=== PATIENT | male | born 1975 | race Caucasian/White ===

== ENCOUNTER 2017-01-16 18:37 | Emergency (ER) | payer BC ==
[~2017-01-16] VITALS: Ht 175.3 cm; Wt 102.2 kg
[~2017-01-16 18:37] MED LIST: BISM262O23 PO; CLON-429; GUAI-637 PO; OMEP20CA9 PO; PAXIL
[2017-01-16 20:05] VITALS: Ht 175.3 cm; Wt 102.2 kg
[2017-01-16] MEDS ORDERED: DOXY100T20 PO (21:02)
[2017-01-16] MEDS ORDERED: CETI10CA PO (21:02)
[2017-01-16] MEDS ORDERED: KENC1 TOP (21:02)
--- NOTE | 2017-01-16 21:15 | ERD ---
ER Documentation Chief Complaint Date/Time DATE: 01/16/17 TIME: 21:14 Chief Complaint RASH TO RT SIDE FOREHEAD AND HEAD, C/O HEADACHE DENIES FEVER HPI This 42-year-old male complains of a rash which is painful and itchy on the right side of the scalp as well as the left posterior scalp. Splint for last few days. He says it might started after new shampoo. Denies fevers, vomiting , shortness breath or chest pain. ROS All systems reviewed and are negative except as per history of present illness. Medications Home Meds Active Scripts Cetirizine Hcl* (Zyrtec*) 10 Mg Capsule, 10 MG PO DAILY, #30 TAB.CHEW Prov:BECKI VALENTINO MD 01/16/17 Triamcinolone Acetonide (Triamcinolone Acetonide) 0.1% - 15 Gm Cream.gm., 1 APPLIC TOP BID for 7 Days, #1 TUB Prov:BECKI VALENTINO MD 01/16/17 Doxycycline Hyclate* (Doxycycline Hyclate*) 100 Mg Tablet.dr, 100 MG PO BID for 10 Days, #20 TAB Prov:BECKI VALENTINO MD 01/16/17 Guaifenesin* (Robitussin*) 100 Mg/5 Ml Syrup, 200 MG PO Q4H Y for COUGH for 5 Days, ML Prov:SANDRA KANG NP 07/10/16 Omeprazole* (Prilosec*) 20 Mg Capsule.dr, 20 MG PO BID, #30 CAP 0 Refills Prov:LUCÍA RIDDLE PA-C 01/22/16 Bismuth Subsalicylate* (Pepto-Bismol*) 262 Mg/15 Ml Oral.susp, 30 ML PO Q6H Y for PAIN, #240 ML 0 Refills Prov:LUCÍA RIDDLE PA-C 01/22/16 Reported Medications Clonazepam* (Klonopin*) 0.5 Mg Tab 03/29/12 [Paxil] No Conflict Check 03/29/12 Allergies Allergies: Coded Allergies: No Known Allergy (Unverified , 01/16/17) PMhx/Soc Medical and Surgical Hx: pt denies Surgical Hx History of Surgery: No Anesthesia Reaction: No Hx Neurological Disorder: No Hx Respiratory Disorders: No Hx Cardiac Disorders: Yes (HTN) Hx Psychiatric Problems: No Hx Miscellaneous Medical Probl: Yes (DM) Hx Alcohol Use: Yes (social) Hx Substance Use: No Hx Tobacco Use: Yes (social) Smoking Status: Current every day smoker Physical Exam Vitals Vital Signs Date Time Temp Pulse Resp B/P Pulse Ox O2 Delivery O2 Flow Rate FiO2 01/16/17 20:05 97.6 74 18 152/96 94 Physical Exam Const: [] Alert, [id number]. Head: Atraumatic Eyes: Normal Conjunctiva ENT: Normal External Ears, Nose and Mouth. Neck: Full range of motion..~ No meningismus. Resp: Clear to auscultation bilaterally Cardio: Regular rate and rhythm, no murmurs Abd: Soft, non tender, non distended. Normal bowel sounds Skin: No petechiae or purpura. There is some papules and excoriations on the scalp erythematous papules. There is no warmth, induration or streaking. Back: No midline or flank tenderness Ext: No cyanosis, or edema Neur: Awake and alert Psych: Normal Mood and Affect Procedures/MDM Patient has signs and symptoms of a rash on the scalp with some small papules pulled it may be a folliculitis or some type of contact dermatitis. There is no evidence of significant cellulitis or sepsis or life-threatening rashes. We treated with doxycycline, triamcinolone and Zyrtec. Patient was instructed to abstain from his new shampoo. Patient should return for fevers, worsening redness, new or worsening symptoms with primary care doctor. Departure Diagnosis: Primary Impression: Rash Condition: Stable Patient Instructions: Dermatitis, Non-Specific, Folliculitis Additional Instructions: Recheck for new or worsening symptoms or with primary care doctor. BECKI VALENTINO MD Jan 16, 2017 21:15
[2017-01-16 21:37] VITALS: BP 150/89; PULSE 72; RESP 16
== END 2017-01-16 21:38 | disposition home or self-care (01) ==
LOC: FTE 18:37
DX: R21 Rash and other nonspecific skin eruption (principal); E11.9 Type 2 diabetes mellitus without complications; I10 Essential (primary) hypertension; F17.210 Nicotine dependence, cigarettes, uncomplicated
CPT/HCPCS: 99284

== ENCOUNTER 2017-04-15 15:54 | Emergency (ER) | payer BC ==
[~2017-04-15] VITALS: Ht 177.8 cm; Wt 100.0 kg
[~2017-04-15 15:54] MED LIST changes: +CETI10CA PO; +DOXY100T20 PO; +KENC1 TOP
[2017-04-15 15:56] VITALS: Ht 177.8 cm; Wt 100.0 kg
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
[2017-04-15] MEDS ORDERED: SILV20CR13 TOP (16:24)
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
[2017-04-15] MEDS ORDERED: NEOM1PAC TP (18:16)
== END 2017-04-15 18:52 | disposition home or self-care (01) ==
LOC: E/R 15:54 → FTE 18:52
DX: Z48.01 Encounter for change or removal of surgical wound dressing (principal); F17.210 Nicotine dependence, cigarettes, uncomplicated; I10 Essential (primary) hypertension; E11.9 Type 2 diabetes mellitus without complications
CPT/HCPCS: 73140

== ENCOUNTER 2017-04-22 14:28 | Emergency (ER) | payer BC ==
[~2017-04-22] VITALS: Wt 89.0 kg
[~2017-04-22 14:28] MED LIST changes: +NEOM1PAC TP
[2017-04-22] MEDS ORDERED: CARB15DR48 LEFT EAR (15:12)
[2017-04-22] MEDS ORDERED: OFLO5DRO7 LEFT EAR (15:12)
--- NOTE | 2017-04-22 20:41 | ERD ---
ER Documentation Chief Complaint Date/Time DATE: 04/22/17 TIME: 15:53 Chief Complaint LEFT EAR PAIN X 2 DAYS HPI 42-year-old male patient with a past medical history of diabetes, hypertension, hyperlipidemia presents to the ED complaining of left ear pain that started 2 days ago. Reports that he has some slightly decreased hearing. Denies any chest pain, shortness of breath, headache, weakness, numbness or tingling. Reports that he uses Q-tips. Denies any recent swimming. ROS All systems reviewed and are negative except as per history of present illness. Medications Home Meds Active Scripts Carbamide Peroxide* (Debrox*) 6.5% - 15 Ml Drops, 10 DROP LEFT EAR BID, #1 BOTTLE Prov:GIANFRANCO PASCAL PA-C 04/22/17 Neomycin Arias/Bacitrac Zn/Poly (Triple Antibiotic Ointment) 1 Each Oint.pack, 1 EACH TP TID for 7 Days Prov:CANDIDO MAGAÑA 04/15/17 Cetirizine Hcl* (Zyrtec*) 10 Mg Capsule, 10 MG PO DAILY, #30 TAB.CHEW Prov:BECKI VALENTINO MD 01/16/17 Triamcinolone Acetonide (Triamcinolone Acetonide) 0.1% - 15 Gm Cream.gm., 1 APPLIC TOP BID for 7 Days, #1 TUB Prov:BECKI VALENTINO MD 01/16/17 Doxycycline Hyclate* (Doxycycline Hyclate*) 100 Mg Tablet., 100 MG PO BID for 10 Days, #20 TAB Prov:BECKI VALENTINO MD 01/16/17 Guaifenesin* (Robitussin*) 100 Mg/5 Ml Syrup, 200 MG PO Q4H Y for COUGH for 5 Days, ML Prov:SANDRA KANG NP 07/10/16 Omeprazole* (Prilosec*) 20 Mg Capsule., 20 MG PO BID, #30 CAP 0 Refills Prov:LUCÍA RIDDLE PA-C 01/22/16 Bismuth Subsalicylate* (Pepto-Bismol*) 262 Mg/15 Ml Oral.susp, 30 ML PO Q6H Y for PAIN, #240 ML 0 Refills Prov:LUCÍA RIDDLE PA-C 01/22/16 Reported Medications Clonazepam* (Klonopin*) 0.5 Mg Tab 03/29/12 [Paxil] No Conflict Check 03/29/12 Allergies Allergies: Coded Allergies: No Known Allergy (Unverified , 01/16/17) PMhx/Soc History of Surgery: No Anesthesia Reaction: No Hx Neurological Disorder: No Hx Respiratory Disorders: No Hx Cardiac Disorders: Yes (HTN) Hx Psychiatric Problems: No Hx Miscellaneous Medical Probl: Yes (DM, HYPERLIPIDEMIA) Hx Alcohol Use: Yes (social) Hx Substance Use: No Hx Tobacco Use: Yes (social) Smoking Status: Never smoker Physical Exam Vitals Vital Signs Date Time Temp Pulse Resp B/P Pulse Ox O2 Delivery O2 Flow Rate FiO2 04/22/17 14:30 98.0 93 18 142/89 99 Physical Exam Const: [id number], well-nourished. In no acute distress. Head: Atraumatic, normocephalic Eyes: Normal Conjunctiva without injection. No purulent discharge. PERRL. EOMI ENT: Normal external ear. Right ear canal without erythema. Right tympanic membrane pearly abdi without effusion or bulging. Left ear canal with brown cerumen noted. Nasal canal clear with normal turbinates. Moist oropharynx without tonsillar exudates. Non-erythematous pharynx. Uvula midline. No drooling. No trismus. Neck: Full range of motion. No meningismus. No cervical lymphadenopathy. Resp: Clear to auscultation bilaterally. No wheezing, rhonchi, rales, or crackles. No accessory muscle use. No retractions. Cardio: Regular rate and rhythm. No murmurs, rubs or gallops. Abd: Soft, non tender, non distended. Normal bowel sounds. No palpable masses. No rebound tenderness. No guarding. Skin: No petechiae or rashes Back: No midline tenderness. No CVA tenderness. Ext: No cyanosis, or edema. Neur: Awake and alert. Psych: Normal Mood and Affect Procedures/MDM 42-year-old male patient with a past medical history of diabetes, hypertension, hypercholesterolemia presents the ED complaining of left ear pain that started 2 days ago. Patient is afebrile nontoxic appearing. Patient has normal vital signs. At this time patient gave consent to do a cerumen disimpaction. Hydrogen peroxide and normal saline was used to remove the cerumen. White cotton disimpacted from left ear canal could likely be the tip of the Q-tip. Patient reports that his hearing is better. Patient does not have tenderness to palpation of tragus or mastoid. Low suspicion for otitis media, otitis externa, ruptured tympanic membrane or mastoiditis. Patient's physical exam include lungs which were clear to auscultation and a normal pulse oximetry. There is a low suspicion for pneumonia, epiglottitis, croup, viral/strep pharyngitis, sinusitis, peritonsillar abscess, retropharyngeal abscess, meningitis, sepsis, acute abdomen or other emergent conditions. Discharge medications: Debrox Follow up with primary care physician in 1-2 days. Instructed patient to return to the ED sooner for any worsening symptoms. Patient's questions were answered. Patient understood and agreed with discharge plan. Patient discharged stable. Departure Diagnosis: Primary Impression: Left ear pain Condition: Stable Patient Instructions: Cerumen Impaction, Home Care Referrals: [facility] YOU HAVE RECEIVED A MEDICAL SCREENING EXAM AND THE RESULTS INDICATE THAT YOU DO NOT HAVE A CONDITION THAT REQUIRES URGENT TREATMENT IN THE EMERGENCY DEPARTMENT. FURTHER EVALUATION AND TREATMENT OF YOUR CONDITION CAN WAIT UNTIL YOU ARE SEEN IN YOUR DOCTORS OFFICE WITHIN THE NEXT 1-2 DAYS. IT IS YOUR RESPONSIBILITY TO MAKE AN APPOINTMENT FOR FOLOW-UP CARE. IF YOU HAVE A PRIMARY DOCTOR --you should call your primary doctor and schedule an appointment IF YOU DO NOT HAVE A PRIMARY DOCTOR YOU CAN CALL OUR PHYSICIAN REFERRAL HOTLINE AT IF YOU CAN NOT AFFORD TO SEE A PHYSICIAN YOU CAN CHOSE FROM THE FOLLOWING [facility] [address] [facility] [address] [facility] [address] [facility] [address] [facility] [address] [facility]. [facility]. [address] [facility] [facility] YOU HAVE RECEIVED A MEDICAL SCREENING EXAM AND THE RESULTS INDICATE THAT YOU DO NOT HAVE A CONDITION THAT REQUIRES URGENT TREATMENT IN THE EMERGENCY DEPARTMENT. FURTHER EVALUATION AND TREATMENT OF YOUR CONDITION CAN WAIT UNTIL YOU ARE SEEN IN YOUR DOCTORS OFFICE WITHIN THE NEXT 1-2 DAYS. IT IS YOUR RESPONSIBILITY TO MAKE AN APPOINTMENT FOR FOLOW-UP CARE. IF YOU HAVE A PRIMARY DOCTOR --you should call your primary doctor and schedule and appointment IF YOU DO NOT HAVE A PRIMARY DOCTOR YOU CAN CALL OUR PHYSICIAN REFERRAL HOTLINE AT . IF YOU CAN NOT AFFORD TO SEE A PHYSICIAN YOU CAN CHOSE FROM THE FOLLOWING [facility] INSTITUTIONS: [facility] [address] [place] [address] [facility] [address] [place] [address] [facility] [address] [place] [address] [facility]ENT [facility]/SPECIALTIES Additional Instructions: Call your primary care doctor TOMORROW for an appointment during the next 2-3 days.See the doctor sooner or return here if your condition worsens before your appointment time. GIANFRANCO PASCAL PA-C Apr 22, 2017 15:55
== END 2017-04-22 15:46 | disposition home or self-care (01) ==
LOC: FTE 14:28
DX: H92.02 Otalgia, left ear (principal); I10 Essential (primary) hypertension; E11.9 Type 2 diabetes mellitus without complications; H61.22 Impacted cerumen, left ear; Z87.891 Personal history of nicotine dependence

== ENCOUNTER 2017-06-28 18:17 | Emergency (ER) | payer BC ==
[~2017-06-28] VITALS: Wt 96.4 kg
[~2017-06-28 18:17] MED LIST changes: +CARB15DR50 LEFT EAR; -KENC1 TOP; +TRIA15CR55 TOP
[2017-06-28] MEDS ORDERED: ONDANSETRON 4 MG INJ IV STA (18:46)
[2017-06-28] MEDS ORDERED: morphine 10 MG INJ IV ONE (19:00)
[2017-06-28] MEDS ORDERED: SOD CHLORIDE 0.9% 1,000 ML IV ONE (19:00)
[2017-06-28 19:06] LABS: BASOPHILS % 0.3 % (0.0-2.0); EOSINOPHILS # 0.1 10^3/ul (0.0-0.5); HEMATOCRIT 41.4 % (42.0-52.0); HEMOGLOBIN 14.4 g/dl (14.0-18.0); LYMPHOCYTES % 28.6 % (15.0-51.0); MEAN CORPUSCULAR HEMOGLOBIN 31.7 pg (29.0-33.0); MEAN CORPUSCULAR HGB CONC 34.8 g/dl (32.0-37.0); MEAN CORPUSCULAR VOLUME 91.2 fl (82.0-101.0); MEAN PLATELET VOLUME 9.1 fl (7.4-10.4); MONOCYTE # 0.5 10^3/ul (0.3-0.9); MONOCYTES % 7.5 % (0.0-11.0); NEUTROPHILS % 61.5 % (39.0-77.0); PLATELET COUNT 283 10^3/UL (140-415); RED BLOOD COUNT 4.54 10^6/ul (4.70-6.10)
[2017-06-28 19:23] LABS: INR 0.93; PROTIME 12.5 Sec (12.2-14.2)
[2017-06-28 19:24] LABS: PARTIAL THROMBOPLASTIN TIME 25.1 Sec (25.0-35.0)
--- NOTE | 2017-06-28 19:24 | RADRPT ---
PROCEDURE: CT Brain without contrast. CLINICAL INDICATION: headache TECHNIQUE: A CT of the brain was performed on a [employer] 64-slice CT scanner utilizing axial imaging from the skull base through the vertex without IV contrast. Multiplanar reformatted images were made. Images were reviewed on a PACS workstation. The CTDIvol is 45 mGy and the DLP is 720 mG ycm. COMPARISON: None FINDINGS: There is no intracranial hemorrhage, mass effect, or midline shift. No extra-axial fluid collection is seen. The ventricles and sulci are normal in size and configuration. The density of the brain is normal, and the abdi white matter differentiation appears well-preserved. The visualized paranasal sinuses and osseous structures are grossly unremarkable. IMPRESSION: 1. No evidence of acute intracranial pathology. 2. The brain is normal in appearance. Physician Kush Date Time Electronically viewed and signed by Physician Kush on 06/28/2017 19:23 ML/
[2017-06-28 19:30] LABS: ALBUMIN 4.5 g/dl (3.3-4.9); ALBUMIN/GLOBULIN RATIO 1.55; BILIRUBIN,INDIRECT 0.2 mg/dl (0-1.1); BILIRUBIN,TOTAL 0.2 mg/dl (0.2-1.3); CALCIUM 8.7 mg/dl (8.4-10.2); CREATININE 0.76 mg/dl (0.61-1.24); POTASSIUM 4.1 mmol/L (3.5-5.1)
[2017-06-28 19:34] LABS: TOTAL PROTEIN 7.4 g/dl (6.1-8.1)
[2017-06-28] MEDS ORDERED: IBUP-1542 PO (20:12)
[2017-06-28] MEDS ORDERED: HYDR-906 PO (20:12)
[2017-06-28] MEDS ORDERED: KETOROLAC 30 MG INJ IV STA (20:16)
[2017-06-28 20:28] VITALS: BP 133/87; PULSE 76; RESP 18; TEMP 98.2
--- NOTE | 2017-06-28 21:06 | ERD ---
ER Documentation Chief Complaint Date/Time DATE: 06/28/17 TIME: 21:03 Chief Complaint bump on head HPI This is a 42-year-old male presents here with a headache that started today. Headache is located on the right side of his head and patient states that head ache is throbbing in quality. Headache radiates throughout his entire head. Patient denies any head trauma. He denies any vision loss or vision changes. He denies any nausea or vomiting. He denies any photophobia. Patient took ibuprofen however headache returned after a few hours. She denies any neck pain or neck stiffness ROS 12 point review of systems was done, all negative except per HPI. Medications Home Meds Active Scripts Hydrocodone/Acetaminophen ([place] 5-325 Tablet) 1 Each Tablet, 1 TAB PO Q6H Y for PAIN, #20 TAB Prov:SHERRY ZEE 06/28/17 Ibuprofen* (Motrin*) 600 Mg Tab, 600 MG PO Q6, #30 TAB Prov:SHERRY ZEE 06/28/17 Carbamide Peroxide* (Debrox*) 6.5% - 15 Ml Drops, 10 DROP LEFT EAR BID, #1 BOTTLE Prov:GIANFRANCO PASCAL PA-C 04/22/17 Neomycin Arias/Bacitrac Zn/Poly (Triple Antibiotic Ointment) 1 Each Oint.pack, 1 EACH TP TID for 7 Days Prov:CANDIDO MAGAÑA 04/15/17 Cetirizine Hcl* (Zyrtec*) 10 Mg Capsule, 10 MG PO DAILY, #30 TAB.CHEW Prov:BECKI VALENTINO MD 01/16/17 Triamcinolone Acetonide (Triamcinolone Acetonide) 0.1% - 15 Gm Cream.gm., 1 APPLIC TOP BID for 7 Days, #1 TUB Prov:BECKI VALENTINO MD 01/16/17 Doxycycline Hyclate* (Doxycycline Hyclate*) 100 Mg Tablet.dr, 100 MG PO BID for 10 Days, #20 TAB Prov:BECKI VALENTINO MD 01/16/17 Guaifenesin* (Robitussin*) 100 Mg/5 Ml Syrup, 200 MG PO Q4H Y for COUGH for 5 Days, ML Prov:SANDRA KANG NP 07/10/16 Omeprazole* (Prilosec*) 20 Mg Capsule.dr, 20 MG PO BID, #30 CAP 0 Refills Prov:LUCÍA RIDDLE PA-C 01/22/16 Bismuth Subsalicylate* (Pepto-Bismol*) 262 Mg/15 Ml Oral.susp, 30 ML PO Q6H Y for PAIN, #240 ML 0 Refills Prov:VENKATESHLUCÍA MCFARLANE 01/22/16 Reported Medications Clonazepam* (Klonopin*) 0.5 Mg Tab 03/29/12 [Paxil] No Conflict Check 03/29/12 Allergies Allergies: Coded Allergies: No Known Allergy (Unverified , 06/28/17) PMhx/Soc History of Surgery: No Anesthesia Reaction: No Hx Neurological Disorder: No Hx Respiratory Disorders: No Hx Cardiac Disorders: Yes (HTN) Hx Psychiatric Problems: No Hx Miscellaneous Medical Probl: Yes (DM, HYPERLIPIDEMIA) Hx Alcohol Use: Yes (social) Hx Substance Use: No Hx Tobacco Use: Yes (social) Smoking Status: Current every day smoker Physical Exam Vitals Vital Signs Date Time Temp Pulse Resp B/P Pulse Ox O2 Delivery O2 Flow Rate FiO2 06/28/17 20:28 98.2 76 18 133/87 95 Room Air 06/28/17 18:24 98.0 20 85 140/85 97 Physical Exam GENERAL: The patient is well developed and appropriate for usual state of health , in no apparent distress. HEENT: Atraumatic. Conjunctivae are pink. Pupils equal, round, and reactive to light. Extraocular muscles are grossly intact. Bilateral tympanic membranes are clear with no evidence of erythema, bulging or perforation. No sinus tenderness. NECK: C-spine is soft and supple. There is no cervical lymphadenopathy. CHEST: Clear to auscultation bilaterally. There are no rales, wheezes or rhonchi. HEART: Regular rate and rhythm. No murmurs, clicks, rubs or gallops. EXTREMITIES: Equal pulses bilaterally. There is no peripheral clubbing, cyanosis or edema. No focal swelling or erythema. Full range of motion. Grossly neurovascularly intact. NEURO: Alert and oriented. Cranial nerves II through XII are intact. Motor strength in all 4 extremities with 5/5 strength. Sensation grossly intact. Normal speech and gait. Negative Rhomberg. +2 DTRs. SKIN: There is no apparent rash or petechia. The skin is warm and dry. Result Diagram: 06/28/17189906/28/171899 Results 24 hrs Laboratory Tests Test 06/28/17 19:00 06/28/17 20:18 White Blood Count 7.010^3/ul Red Blood Count 4.5410^6/ul Hemoglobin 14.4g/dl Hematocrit 41.4% Mean Corpuscular Volume 91.2fl Mean Corpuscular Hemoglobin 31.7pg Mean Corpuscular Hemoglobin Concent 34.8g/dl Red Cell Distribution Width 12.0% Platelet Count 68028^3/UL Mean Platelet Volume 9.1fl Neutrophils % 61.5% Lymphocytes % 28.6% Monocytes % 7.5% Eosinophils % 2.0% Basophils % 0.3% Nucleated Red Blood Cells % 0.0/100WBC Neutrophils # (Manual) 410^3/ul Lymphocytes # 2.010^3/ul Monocytes # 0.510^3/ul Eosinophils # 0.110^3/ul Basophils # 0.010^3/ul Nucleated Red Blood Cells # 0.010^3/ul Prothrombin Time 12.5Sec Prothrombin Time Ratio 1.0 INR International Normalized Ratio 0.93 Activated Partial Thromboplast Time 25.1Sec Sodium Level 133mmol/L Potassium Level 4.1mmol/L Chloride Level 99mmol/L Carbon Dioxide Level 21mmol/L Anion Gap 17 Blood Urea Nitrogen 10mg/dl Creatinine 0.76mg/dl Glucose Level 348mg/dl Calcium Level 8.7mg/dl Total Bilirubin 0.2mg/dl Direct Bilirubin 0.00mg/dl Indirect Bilirubin 0.2mg/dl Aspartate Amino Transf (AST/SGOT) 56IU/L Alanine Aminotransferase (ALT/SGPT) 86IU/L Alkaline Phosphatase 85IU/L Total Protein 7.4g/dl Albumin 4.5g/dl Globulin 2.90g/dl Albumin/Globulin Ratio 1.55 Bedside Glucose 247mg/dL Current Medications Medications (Trade) Dose Ordered Sig/Rob Route PRN Reason Start Time Stop Time Status Last Admin Dose Admin Sodium Chloride (NS) 1,000 ml @ 1,000 mls/hr Q1H ONCE IV 06/28/17 19:00 06/28/17 19:59 DC 06/28/17 19:03 Morphine Sulfate (morphine) 6 mg ONCE ONCE IV 06/28/17 19:00 06/28/17 19:01 DC 06/28/17 19:03 Ondansetron HCl (Zofran Inj) 4 mg ONCE STAT IV 06/28/17 18:46 06/28/17 18:49 DC 06/28/17 19:02 Ketorolac Tromethamine (Toradol) 30 mg ONCE STAT IV 06/28/17 20:16 06/28/17 20:17 DC 06/28/17 20:20 [place] [address] Radiology Main Line: [phone] DIAGNOSTIC IMAGING REPORT Patient: RONI PRESLEY : 1975 Age: 42 Sex: M MR #: [id number] DOS: 06/28/17 0000 Ordering MD: SHERRY ZEE. PA-C Location: [facility] Room/Bed: PROCEDURE: CT Brain without contrast. CLINICAL INDICATION: headache TECHNIQUE: A CT of the brain was performed on a GE [employer] 64-slice CT scanner utilizing axial imaging from the skull base through the vertex without IV contrast. Multiplanar reformatted images were made. Images were reviewed on a PACS workstation. The CTDIvol is 45 mGy and the DLP is 720 mGycm. COMPARISON: None FINDINGS: There is no intracranial hemorrhage, mass effect, or midline shift. No extra- axial fluid collection is seen. The ventricles and sulci are normal in size and configuration. The density of the brain is normal, and the abdi white matter differentiation appears well-preserved. The visualized paranasal sinuses and osseous structures are grossly unremarkable. IMPRESSION: 1. No evidence of acute intracranial pathology. 2. The brain is normal in appearance. Physician Kush Date Time Electronically viewed and signed by Physician Kush on 06/28/2017 19 :23 ML/ CC: SHERRY ZEE Procedures/MDM Differential Diagnosis includes but is not limited to; tension headache, migraine headache, cluster headache, sinus headache, nonspecific febrile headache, trigeminal neurologia, subdural hematoma, subarachnoid bleeding, meningitis, encephalitis. Patient is neurologically intact with no focal neurological deficits. This is a 42-year-old male presents ER with a headache, this is likely a migraine headache. For acute intracranial pathology is low. Patient is afebrile and well-appearing I doubt infectious etiology. Patient is to follow-up with his primary care doctor within 1-2 days or return to ER sooner if symptoms worsen. My medical decision making shared with the patient he understands and agrees with plan. Departure Diagnosis: Primary Impression: Headache Condition: Stable Patient Instructions: Self-Care for Headaches Additional Instructions: Llame al doctor MAANA y neema oralia MELANIE PARA DENTRO DE 1-2 STINSON.Dgale a la secretaria que nosotros le instruimos hacer esta melanie.Avise o llame si arias condicin se empeora antes de la melanie. Regresa aqui si peor o no mejor. SHERRY ZEE Jun 28, 2017 21:06
== END 2017-06-28 20:30 | disposition home or self-care (01) ==
LOC: FTE 18:17
DX: R51 Headache (principal); I10 Essential (primary) hypertension; E11.9 Type 2 diabetes mellitus without complications; F17.210 Nicotine dependence, cigarettes, uncomplicated
CPT/HCPCS: 70450; 80053; 82962; 85025; 85610; 85730; 96374; 96375; 99285; J1885; J2270; J2405; J7030

== ENCOUNTER 2017-08-16 18:51 | Emergency (ER) | payer BC ==
[~2017-08-16] VITALS: Ht 170.2 cm; Wt 100.5 kg
[~2017-08-16 18:51] MED LIST changes: +HYDR-906 PO; +IBUP-1542 PO
[2017-08-16 19:29] VITALS: Ht 170.2 cm; Wt 100.5 kg
[2017-08-16] MEDS ORDERED: LISI10TA2 PO (22:31)
[2017-08-16] MEDS ORDERED: ZOC10 PO (22:32)
--- NOTE | 2017-08-16 22:39 | ERD ---
ER Documentation Chief Complaint Date/Time DATE: 08/16/17 TIME: 22:37 Chief Complaint MED REFILL ON SIMVASTATIN AND LISINOPRIL. DENIES KEANE/N/V HPI This is 42-year-old male who presents to the emergency department today for refill of his simvastatin and lisinopril. States he is unsure how much simvastatin he takes as he forgot the bottle at home. States that he has a local clinic but the computer system went down there and they told him they would call them back and they never followed up. Denies any headache, dizziness blurred vision, chest pain or shortness of breath. ROS All systems reviewed and are negative except as per history of present illness. Medications Home Meds Active Scripts Simvastatin (Simvastatin) 10 Mg Tablet, 10 MG PO QHS, #30 TAB Prov:VIC PAL PA-C 08/16/17 Lisinopril* (Lisinopril*) 10 Mg Tablet, 10 MG PO DAILY, #30 TAB Prov:VIC PAL PA-C 08/16/17 Hydrocodone/Acetaminophen ([place] 5-325 Tablet) 1 Each Tablet, 1 TAB PO Q6H Y for PAIN, #20 TAB Prov:SHERRY ZEE 06/28/17 Ibuprofen* (Motrin*) 600 Mg Tab, 600 MG PO Q6, #30 TAB Prov:SHERRY ZEE 06/28/17 Carbamide Peroxide* (Debrox*) 6.5% - 15 Ml Drops, 10 DROP LEFT EAR BID, #1 BOTTLE Prov:GIANFRANCO PASCAL PA-C 04/22/17 Neomycin Arias/Bacitrac Zn/Poly (Triple Antibiotic Ointment) 1 Each Oint.pack, 1 EACH TP TID for 7 Days Prov:CANDIDO MAGAÑA 04/15/17 Cetirizine Hcl* (Zyrtec*) 10 Mg Capsule, 10 MG PO DAILY, #30 TAB.CHEW Prov:BECKI VALENTINO MD 01/16/17 Triamcinolone Acetonide (Triamcinolone Acetonide) 0.1% - 15 Gm Cream.gm., 1 APPLIC TOP BID for 7 Days, #1 TUB Prov:BECKI VALENTINO MD 01/16/17 Doxycycline Hyclate* (Doxycycline Hyclate*) 100 Mg Tablet.dr, 100 MG PO BID for 10 Days, #20 TAB Prov:BECKI VALENTINO MD 01/16/17 Guaifenesin* (Robitussin*) 100 Mg/5 Ml Syrup, 200 MG PO Q4H Y for COUGH for 5 Days, ML Prov:SANDRA KANG NP 07/10/16 Omeprazole* (Prilosec*) 20 Mg Capsule., 20 MG PO BID, #30 CAP 0 Refills Prov:LUCÍA RIDDLE PA-C 01/22/16 Bismuth Subsalicylate* (Pepto-Bismol*) 262 Mg/15 Ml Oral.susp, 30 ML PO Q6H Y for PAIN, #240 ML 0 Refills Prov:LUCÍA RIDDLE PA-C 01/22/16 Reported Medications Clonazepam* (Klonopin*) 0.5 Mg Tab 03/29/12 [Paxil] No Conflict Check 03/29/12 Allergies Allergies: Coded Allergies: No Known Allergy (Unverified , 08/16/17) PMhx/Soc Medical and Surgical Hx: pt denies Surgical Hx History of Surgery: No Anesthesia Reaction: No Hx Neurological Disorder: No Hx Respiratory Disorders: No Hx Cardiac Disorders: Yes (HTN) Hx Psychiatric Problems: No Hx Miscellaneous Medical Probl: Yes (DM, HYPERLIPIDEMIA) Hx Alcohol Use: Yes (social) Hx Substance Use: No Hx Tobacco Use: Yes (social) Smoking Status: Current every day smoker Physical Exam Vitals Vital Signs Date Time Temp Pulse Resp B/P Pulse Ox O2 Delivery O2 Flow Rate FiO2 08/16/17 19:29 98.7 92 20 160/89 98 Physical Exam Const: NAD Head: Atraumatic Eyes: Normal Conjunctiva ENT: Normal External Ears, Nose and Mouth. Neck: Full range of motion..~ No meningismus. Resp: Clear to auscultation bilaterally Cardio: Regular rate and rhythm, no murmurs Abd: Soft, non tender, non distended. Normal bowel sounds Skin: No petechiae or rashes Back: No midline or flank tenderness Ext: No cyanosis, or edema Neur: Awake and alert Psych: Normal Mood and Affect Procedures/MDM This 42-year-old male presents the emergency department today for medication refill on his simvastatin and lisinopril. Patient indicated he had been out approximately 3 weeks. Patient's vital signs are stable. His blood pressure is 160/89. He has no headache dizziness blurred vision chest pain or shortness of breath and I do not feel he requires further workup or imaging at this time. Patient for hypertensive emergency or hypertensive urgency. Patient was given a refill on both of his medications. He was instructed to keep his appointment with his primary care doctor. At this time the patient is stable for discharge and outpatient management. Patient should follow up with their PCP in the next 1-2 days. They may return to the emergency department sooner for any persistent or worsening of symptoms. Patient understood and agreed with the plan. Departure Diagnosis: Primary Impression: Encounter for medication refill Condition: Fair Patient Instructions: Taking Medicine Safely Referrals: your PCP Additional Instructions: Llame al doctor VENTURA y neema oralia MELANIE PARA DENTRO DE 1-2 STINSON.Dgale a la secretaria que nosotros le instruimos hacer esta melanie.Avise o llame si arias condicin se empeora antes de la melanie. Regresa aqui si peor o no mejor. Take medications as prescribed Keep your appoitment with your primary care doctor VIC PAL PA-C Aug 16, 2017 22:39
== END 2017-08-16 23:12 | disposition home or self-care (01) ==
LOC: FTE 18:51
DX: Z76.0 Encounter for issue of repeat prescription (principal); I10 Essential (primary) hypertension; E11.9 Type 2 diabetes mellitus without complications; F17.210 Nicotine dependence, cigarettes, uncomplicated
CPT/HCPCS: 99281

== ENCOUNTER 2017-09-20 18:39 | Emergency (ER) | payer BC ==
[~2017-09-20] VITALS: Ht 175.3 cm; Wt 98.6 kg
[~2017-09-20 18:39] MED LIST changes: +LISI10TA2 PO; +ZOC10 PO
[2017-09-20 18:48] VITALS: Ht 175.3 cm; Wt 98.6 kg
[2017-09-20] MEDS ORDERED: ASPIRIN 81 MG TAB PO STA (20:07)
[2017-09-20 20:16] LABS: BASOPHILS % 0.4 % (0.0-2.0); EOSINOPHILS # 0.1 10^3/ul (0.0-0.5); EOSINOPHILS % 1.2 % (0.0-7.0); LYMPHOCYTES # 2.1 10^3/ul (0.8-2.9); LYMPHOCYTES % 26.5 % (15.0-51.0); MEAN CORPUSCULAR HEMOGLOBIN 32.5 pg (29.0-33.0); MEAN CORPUSCULAR HGB CONC 34.9 g/dl (32.0-37.0); MEAN CORPUSCULAR VOLUME 93.1 fl (82.0-101.0); MEAN PLATELET VOLUME 9.3 fl (7.4-10.4); MONOCYTE # 0.5 10^3/ul (0.3-0.9); MONOCYTES % 6.8 % (0.0-11.0); NEUTROPHILS % 64.8 % (39.0-77.0); PLATELET COUNT 314 10^3/UL (140-415); RED BLOOD COUNT 4.62 10^6/ul (4.70-6.10); RED CELL DISTRIBUTION WIDTH 11.7 % (11.5-14.5); WHITE BLOOD COUNT 7.8 10^3/ul (4.8-10.8)
[2017-09-20 20:23] LABS: ANION GAP 16 (8-16); BLOOD UREA NITROGEN 10 mg/dl (7-20); CALCIUM 9.5 mg/dl (8.4-10.2); CARBON DIOXIDE 26 mmol/L (21-31); CHLORIDE 97 mmol/L (97-110); CREATININE 0.82 mg/dl (0.61-1.24); GLUCOSE 328 mg/dl (70-220); POTASSIUM 3.9 mmol/L (3.5-5.1); SODIUM 135 mmol/L (135-144)
[2017-09-20] MEDS ORDERED: KETOROLAC 30 MG INJ IV STA (20:28)
[2017-09-20] MEDS ORDERED: SOD CHLORIDE 0.9% 1,000 ML IV STA (20:28)
[2017-09-20 20:35] LABS: TROPONIN-I < 0.012 ng/ml (0.00-0.12)
--- NOTE | 2017-09-20 21:17 | RADRPT ---
PROCEDURE: XR Chest. CLINICAL INDICATION: Chest Pain. TECHNIQUE: Single frontal view of the chest was obtained COMPARISON: Chest radiograph dated November 28, 2015. FINDINGS: The heart is within the upper limits of normal in size. There is mild pulmonary vascular congestion. No focal consolidation, pleural effusions, or pneumotho rax is seen. The osseous structures are grossly unremarkable. IMPRESSION: 1. Mild pulmonary vascular congestion. 2. No focal consolidations. RPTAT:AAJJ Physician Hal Date Time Electronically viewed and signed by Physician Hal on 09/20/2017 21:17 QL/
[2017-09-20] MEDS ORDERED: LISI10TA2 PO (22:11)
[2017-09-20] MEDS ORDERED: SIMV5TAB50 PO (22:11)
[2017-09-20] MEDS ORDERED: GLIP5TAB13 PO (22:11)
[2017-09-20] MEDS ORDERED: PARO40TA79 PO (22:11)
[2017-09-20] MEDS ORDERED: MTF1000T PO (22:11)
--- NOTE | 2017-09-20 22:12 | ERD ---
ER Documentation Chief Complaint Chief Complaint Uncontrolled HTN, headache x 2 days. HPI 42-year-old male with a history of hypertension and diabetes presenting for uncontrolled hypertension and poorly controlled diabetes. He states he is supposed be on metformin 1000 mg twice daily, however he ran out of this medication, so he is only taking 500 mg twice daily. He also complains of intermittent chest pains and headaches. He states he has been feeling unwell for quite some time. He has an appointment scheduled with his primary care doctor in 1 month. Is asking for refill for all of his medications. ROS All systems reviewed and are negative except as per history of present illness. Medications Home Meds Active Scripts Paroxetine Hcl* (Paroxetine*) 40 Mg Tablet, 40 MG PO DAILY, #30 TAB Prov:HOLLY ROMERO MD 09/20/17 Simvastatin* (Simvastatin*) 5 Mg Tablet, 10 MG PO QHS, #30 TAB Prov:HOLLY ROMERO MD 09/20/17 Glipizide* (Glipizide*) 5 Mg Tablet, 5 MG PO BID, #60 TAB Prov:HOLLY ROMERO MD 09/20/17 Lisinopril* (Lisinopril*) 10 Mg Tablet, 10 MG PO DAILY, #30 TAB Prov:HOLLY ROMERO MD 09/20/17 Metformin* (Glucophage*) 1,000 Mg Tablet, 1000 MG PO BID, #60 TAB Prov:HOLLY ROMERO MD 09/20/17 Simvastatin (Simvastatin) 10 Mg Tablet, 10 MG PO QHS, #30 TAB Prov:VIC PAL PA-C 08/16/17 Lisinopril* (Lisinopril*) 10 Mg Tablet, 10 MG PO DAILY, #30 TAB Prov:VIC PAL PA-C 08/16/17 Hydrocodone/Acetaminophen ([place] 5-325 Tablet) 1 Each Tablet, 1 TAB PO Q6H Y for PAIN, #20 TAB Prov:SHERRY ZEE 06/28/17 Ibuprofen* (Motrin*) 600 Mg Tab, 600 MG PO Q6, #30 TAB Prov:SHERRY ZEE 06/28/17 Carbamide Peroxide* (Debrox*) 6.5% - 15 Ml Drops, 10 DROP LEFT EAR BID, #1 BOTTLE Prov:GIANFRANCO PASCAL PA-C 04/22/17 Neomycin Arias/Bacitrac Zn/Poly (Triple Antibiotic Ointment) 1 Each Oint.pack, 1 EACH TP TID for 7 Days Prov:CANDIDO MAGAÑA 04/15/17 Cetirizine Hcl* (Zyrtec*) 10 Mg Capsule, 10 MG PO DAILY, #30 TAB.CHEW Prov:BECKI VALENTINO MD 01/16/17 Triamcinolone Acetonide (Triamcinolone Acetonide) 0.1% - 15 Gm Cream.gm., 1 APPLIC TOP BID for 7 Days, #1 TUB Prov:BECKI VALENTINO MD 01/16/17 Doxycycline Hyclate* (Doxycycline Hyclate*) 100 Mg Tablet., 100 MG PO BID for 10 Days, #20 TAB Prov:BECKI VALENTINO MD 01/16/17 Guaifenesin* (Robitussin*) 100 Mg/5 Ml Syrup, 200 MG PO Q4H Y for COUGH for 5 Days, ML Prov:SANDRA KANG NP 07/10/16 Omeprazole* (Prilosec*) 20 Mg Capsule.dr, 20 MG PO BID, #30 CAP 0 Refills Prov:LUCÍA RIDDLE PA-C 01/22/16 Bismuth Subsalicylate* (Pepto-Bismol*) 262 Mg/15 Ml Oral.susp, 30 ML PO Q6H Y for PAIN, #240 ML 0 Refills Prov:LUCÍA RIDDLE PA-C 01/22/16 Reported Medications Clonazepam* (Klonopin*) 0.5 Mg Tab 03/29/12 [Paxil] No Conflict Check 03/29/12 Allergies Allergies: Coded Allergies: No Known Allergy (Unverified , 08/16/17) PMhx/Soc History of Surgery: No Anesthesia Reaction: No Hx Neurological Disorder: No Hx Respiratory Disorders: No Hx Cardiac Disorders: Yes (HTN) Hx Psychiatric Problems: No Hx Miscellaneous Medical Probl: Yes (DM, HYPERLIPIDEMIA) Hx Alcohol Use: Yes (social) Hx Substance Use: No Hx Tobacco Use: Yes (social) Smoking Status: Current some day smoker FmHx Family History: diabetes Physical Exam Vitals Vital Signs Date Time Temp Pulse Resp B/P Pulse Ox O2 Delivery O2 Flow Rate FiO2 09/20/17 22:19 98.7 75 22 141/83 97 Room Air 09/20/17 21:00 76 20 139/72 96 Room Air 09/20/17 20:15 98.5 76 20 150/90 96 Room Air 09/20/17 19:42 84 20 164/93 99 Room Air 09/20/17 18:48 98.0 116 20 202/139 99 Physical Exam Const: Nontoxic, no apparent distress Head: Atraumatic Eyes: Normal Conjunctiva ENT: Normal External Ears, Nose and Mouth. Neck: Full range of motion..~ No meningismus. Resp: Clear to auscultation bilaterally Cardio: Regular rate and rhythm, no murmurs. 2+ distal pulses Abd: Soft, non tender, non distended. Normal bowel sounds Skin: No petechiae or rashes Back: No midline or flank tenderness Ext: No cyanosis, or edema Neur: Awake and alert, oriented 3, cranial nerves intact, strength and sensations intact in all 4 extremities. Normal gait Psych: Normal Mood and Affect Result Diagram: 09/20/17195509/20/171955 Results 24 hrs Laboratory Tests Test 09/20/17 19:56 09/20/17 22:04 White Blood Count 7.810^3/ul Red Blood Count 4.6210^6/ul Hemoglobin 15.0g/dl Hematocrit 43.0% Mean Corpuscular Volume 93.1fl Mean Corpuscular Hemoglobin 32.5pg Mean Corpuscular Hemoglobin Concent 34.9g/dl Red Cell Distribution Width 11.7% Platelet Count 60692^3/UL Mean Platelet Volume 9.3fl Neutrophils % 64.8% Lymphocytes % 26.5% Monocytes % 6.8% Eosinophils % 1.2% Basophils % 0.4% Nucleated Red Blood Cells % 0.0/100WBC Neutrophils # 5.010^3/ul Lymphocytes # 2.110^3/ul Monocytes # 0.510^3/ul Eosinophils # 0.110^3/ul Basophils # 0.010^3/ul Nucleated Red Blood Cells # 0.010^3/ul Sodium Level 135mmol/L Potassium Level 3.9mmol/L Chloride Level 97mmol/L Carbon Dioxide Level 26mmol/L Anion Gap 16 Blood Urea Nitrogen 10mg/dl Creatinine 0.82mg/dl Glucose Level 328mg/dl Calcium Level 9.5mg/dl Troponin I < 0.012ng/ml Bedside Glucose 161mg/dL Current Medications Medications (Trade) Dose Ordered Sig/Rob Route PRN Reason Start Time Stop Time Status Last Admin Dose Admin Aspirin 162 mg 162 mg ONCE STAT PO 09/20/17 20:07 09/20/17 20:09 DC 09/20/17 20:20 Sodium Chloride (NS) 1,000 ml @ 1,000 mls/hr Q1H STAT IV 09/20/17 20:28 09/20/17 21:27 DC 09/20/17 20:39 Ketorolac Tromethamine (Toradol) 30 mg ONCE STAT IV 09/20/17 20:28 09/20/17 20:29 DC 09/20/17 20:39 Procedures/MDM Labs CBC unremarkable BMP shows hyperglycemia, otherwise normal Troponin within normal limits Imaging Chest x-ray shows no acute abnormalities EKG: Rate/Rhythm: Normal Sinus Rhythm QRS, ST, T-waves: No specific T-wave abnormality, no changes consistent w/ acute ischemia Impression: No evidence of ischemia or arrhythmia MDM Patient is presenting with hyperglycemia and uncontrolled hypertension with complaints of mild chest pain. EKG showed no ischemia. Initial troponin was normal. IV fluids were given. I have a low suspicion for acute coronary syndrome or aortic dissection at this time. There is no evidence of hypertensive emergency. I refilled the patient's lisinopril, metformin, glipizide, but recommended follow-up with PCP as soon as possible for repeat check of his blood pressure and for further refills. I believe he is appropriate for continued outpatient follow-up. Precautions were given. Patient discharged in stable condition. Departure Diagnosis: Primary Impression: Hypertension Hypertension type: unspecified Qualified Code: I10 - Hypertension, unspecified type Additional Impression: Hyperglycemia due to type 2 diabetes mellitus Diabetes mellitus moth exterminator insulin use: without longterm use Qualified Code : E11.65 - Type 2 diabetes mellitus with hyperglycemia, without long-term current use of insulin Condition: Stable Patient Instructions: Diabetic Hyperglycemia, Hypertension, Established, Out Of Control HOLLY ROMERO MD Sep 20, 2017 22:12
[2017-09-20 22:19] VITALS: BP 141/83; PULSE 75; RESP 22; TEMP 98.7
== END 2017-09-20 22:20 | disposition home or self-care (01) ==
LOC: E/R 18:39
DX: I10 Essential (primary) hypertension (principal); E11.65 Type 2 diabetes mellitus with hyperglycemia; F17.210 Nicotine dependence, cigarettes, uncomplicated; Z79.84 Long term (current) use of oral hypoglycemic drugs
CPT/HCPCS: 36415; 71010; 80048; 82962; 84484; 85025; 93005; 96374; 99285; J1885; J7030; Z7610

== ENCOUNTER 2017-11-28 18:40 | Emergency (ER) | END 2017-11-29 01:38 | disposition home or self-care (01) ==

== ENCOUNTER 2018-12-04 18:18 | Emergency (ER) | payer BC ==
[~2018-12-04] VITALS: Ht 175.3 cm; Wt 95.9 kg
[~2018-12-04 18:18] MED LIST changes: +GLIP5TAB13 PO; +HYDR-4011 PO; -HYDR-906 PO; +MTF1000T PO; +PARO40TA79 PO; +SIMV5TAB14 PO; +TRAM50TA2 PO
[2018-12-04 18:40] VITALS: Ht 175.3 cm; Wt 95.9 kg
--- NOTE | 2018-12-04 21:54 | ERD ---
ER Documentation Chief Complaint Chief Complaint KEANE 06/15 SINCE YESTERDAY WITH NOSE BLEED, INTERMITTENT LEFT ARM PAIN HPI 43-year-old male, with history of diabetes and hypertension, presents the emergency department, complaining of headache since yesterday, associated with one episode of epistaxis. The pain is global, 8 out of 10. He denies blurred vision, no nausea, no vomiting, no history of trauma. No distal weakness, numbn ess or tingling. No medications taken for pain at this time. The patient denies fevers, no chills, no abdominal pain. Refers good compliance with medications, no side effects. ROS All systems reviewed and are negative except as per history of present illness. Medications Home Meds Active Scripts Ibuprofen* (Motrin*) 400 Mg Tab, 400 MG PO Q8, #30 TAB Prov:BENNETT SANDERSON MD 12/04/18 Acetaminophen* (Tylenol*) 325 Mg Tablet, 2 TAB PO Q8 PRN for PAIN AND OR ELEVATED TEMP, #20 TAB Prov:BENNETT SANDERSON MD 12/04/18 Ibuprofen* (Motrin*) 600 Mg Tab, 600 MG PO Q6H PRN for PAIN AND OR ELEVATED TEMP, #30 TAB Prov:OG MORIN NP 11/29/17 Tramadol HCl (Tramadol HCl) 50 Mg Tablet, 50 MG PO Q6 PRN for SEVERE PAIN LEVEL 7-10, #20 TAB Prov:OG MORIN PSYCHOPAEDIC NURSE 11/29/17 Paroxetine Hcl* (Paroxetine*) 40 Mg Tablet, 40 MG PO DAILY, #30 TAB Prov:HOLLY ROMERO MD 09/20/17 Simvastatin* (Simvastatin*) 5 Mg Tablet, 10 MG PO QHS, #30 TAB Prov:HOLLY ROMERO MD 09/20/17 Glipizide* (Glipizide*) 5 Mg Tablet, 5 MG PO BID, #60 TAB Prov:HOLLY ROMERO MD 09/20/17 Lisinopril* (Lisinopril*) 10 Mg Tablet, 10 MG PO DAILY, #30 TAB Prov:HOLLY ROMERO MD 09/20/17 Metformin* (Glucophage*) 1,000 Mg Tablet, 1000 MG PO BID, #60 TAB Prov:HOLLY ROMERO MD 09/20/17 Simvastatin (Simvastatin) 10 Mg Tablet, 10 MG PO QHS, #30 TAB Prov:VIC PAL PA-C 08/16/17 Lisinopril* (Lisinopril*) 10 Mg Tablet, 10 MG PO DAILY, #30 TAB Prov:VIC PAL PA-C 08/16/17 Hydrocodone/Acetaminophen ([place] 5-325 Tablet) 1 Each Tablet, 1 TAB PO Q6H PRN for PAIN, #20 TAB Prov:SHERRY ZEE 06/28/17 Ibuprofen* (Motrin*) 600 Mg Tab, 600 MG PO Q6, #30 TAB Prov:SHERRY ZEE 06/28/17 Carbamide Peroxide* (Debrox*) 6.5% - 15 Ml Drops, 10 DROP LEFT EAR BID, #1 BOTTLE Prov:GIANFRANCO PASCAL PA-C 04/22/17 Neomycin Arias/Bacitrac Zn/Poly (Triple Antibiotic Ointment) 1 Each Oint.pack, 1 EACH TP TID for 7 Days Prov:CANDIDO MAGAÑA 04/15/17 Cetirizine Hcl* (Zyrtec*) 10 Mg Capsule, 10 MG PO DAILY, #30 TAB.CHEW Prov:BECKI VALENTINO MD 01/16/17 Triamcinolone Acetonide (Triamcinolone Acetonide) 0.1% - 15 Gm Cream.gm., 1 APPLIC TOP BID for 7 Days, #1 TUB Prov:BECKI VALENTINO MD 01/16/17 Doxycycline Hyclate* (Doxycycline Hyclate*) 100 Mg Tablet., 100 MG PO BID for 10 Days, #20 TAB Prov:BECKI VALENTINO MD 01/16/17 Guaifenesin* (Robitussin*) 100 Mg/5 Ml Syrup, 200 MG PO Q4H PRN for COUGH for 5 Days, ML Prov:SANDRA KANG NP 07/10/16 Omeprazole* (Prilosec*) 20 Mg Capsule.dr, 20 MG PO BID, #30 CAP 0 Refills Prov:LUCÍA RIDDLE PA-C 01/22/16 Bismuth Subsalicylate* (Pepto-Bismol*) 262 Mg/15 Ml Oral.susp, 30 ML PO Q6H PRN for PAIN, #240 ML 0 Refills Prov:VENKATESHLUCÍA MCFARLANE 01/22/16 Reported Medications Clonazepam* (Klonopin*) 0.5 Mg Tab 03/29/12 [Paxil] No Conflict Check 03/29/12 Allergies Allergies: Coded Allergies: No Known Allergy (Unverified , 08/16/17) PMhx/Soc Medical and Surgical Hx: pt denies Surgical Hx History of Surgery: No Anesthesia Reaction: No Hx Neurological Disorder: No Hx Respiratory Disorders: No Hx Cardiac Disorders: Yes (HTN, DYSLIPIDEMIA) Hx Psychiatric Problems: No Hx Miscellaneous Medical Probl: Yes (DM) Hx Alcohol Use: Yes (social) Hx Substance Use: No Hx Tobacco Use: Yes (social) Smoking Status: Current every day smoker Physical Exam Vitals Vital Signs Date Temp Pulse Resp B/P (MAP) Pulse Ox O2 O2 Flow FiO2 Time Delivery Rate 12/04/18 98.3 85 16 147/83 96 18:40 (104) Physical Exam Const: No acute distress Head: Atraumatic Eyes: Normal Conjunctiva ENT: Normal External Ears, Nose and Mouth. Neck: Full range of motion. No meningismus. Resp: Clear to auscultation bilaterally Cardio: Regular rate and rhythm, no murmurs Abd: Soft, non tender, non distended. Normal bowel sounds Skin: No petechiae or rashes Back: No midline or flank tenderness Ext: No cyanosis, or edema Neur: Awake and alert Psych: Normal Mood and Affect Result Diagram: 12/04/18223512/04/182235 Results 24 hrs Laboratory Tests Test 12/04/18 22:36 White Blood Count 6.8 10^3/ul Red Blood Count 4.56 10^6/ul Hemoglobin 14.6 g/dl Hematocrit 42.9 % Mean Corpuscular Volume 94.1 fl Mean Corpuscular Hemoglobin 32.0 pg Mean Corpuscular Hemoglobin Concent 34.0 g/dl Red Cell Distribution Width 11.9 % Platelet Count 316 10^3/UL Mean Platelet Volume 9.0 fl Immature Granulocytes % 0.300 % Neutrophils % 57.4 % Lymphocytes % 30.5 % Monocytes % 8.9 % Eosinophils % 2.6 % Basophils % 0.3 % Nucleated Red Blood Cells % 0.0 /100WBC Immature Granulocytes # 0.020 10^3/ul Neutrophils # 3.9 10^3/ul Lymphocytes # 2.1 10^3/ul Monocytes # 0.6 10^3/ul Eosinophils # 0.2 10^3/ul Basophils # 0.0 10^3/ul Nucleated Red Blood Cells # 0.0 10^3/ul Urine Color YELLOW Urine Clarity CLEAR Urine pH 5.0 Urine Specific [place] 1.023 Urine Ketones TRACE mg/dL Urine Nitrite NEGATIVE mg/dL Urine Bilirubin NEGATIVE mg/dL Urine Urobilinogen NEGATIVE mg/dL Urine Leukocyte Esterase NEGATIVE [place]/ul Urine Hemoglobin NEGATIVE mg/dL Urine Glucose 3+ mg/dL Urine Total Protein NEGATIVE mg/dl Sodium Level 139 mmol/L Potassium Level 4.4 mmol/L Chloride Level 97 mmol/L Carbon Dioxide Level 29 mmol/L Anion Gap 13 Blood Urea Nitrogen 12 mg/dl Creatinine 0.71 mg/dl Est Glomerular Filtrat Rate mL/min > 60 mL/min Glucose Level 150 mg/dl Calcium Level 9.4 mg/dl Total Bilirubin 0.1 mg/dl Direct Bilirubin 0.00 mg/dl Indirect Bilirubin 0.1 mg/dl Aspartate Amino Transf (AST/SGOT) 35 IU/L Alanine Aminotransferase (ALT/SGPT) 36 IU/L Alkaline Phosphatase 66 IU/L Total Protein 8.1 g/dl Albumin 4.6 g/dl Globulin 3.50 g/dl Albumin/Globulin Ratio 1.31 Current Medications Medications Dose Sig/Rob Start Time Status Last (Trade) Ordered Route PRN Stop Time Admin Dose Reason Admin 650 mg ONCE ONCE 12/04/18 DC 12/04/18 Acetaminophen PO 22:30 22:32 (Tylenol 12/04/18 22:31 Tab) Ibuprofen 400 mg ONCE ONCE 12/04/18 DC 12/04/18 (Motrin) PO 22:30 22:33 12/04/18 22:31 Procedures/MDM Vital signs stable, Physical exam unremarkable, neurovascular exam intact. Differential diagnosis include but not limited to: Classical migraine, sinusitis, visual corrective problems, side effects of medications, dehydration, electrolyte imbalance, endocrine/autoimmune medical condition, stress, anxiety, tension headache. Low suspicion for meningitis, INSPECTOR CASING tumor, cerebrovascular event. Physical examination and clinical presentation consistent most likely with tension headache. During the ED course the patient remained stable, no new complaints. Results and clinical impression discussed with patient who agrees with management. The patient is stable to be treated outpatient and will be discharged home, some side effects of prescribed medications (headache, rash, nausea, vomiting, diarrhea, drowsiness, habituation, bleeding, hypertension, interactions with other medications) were reviewed. Follow up with the primary care provider in the next 48h has been recommended. If symptoms persist, worsen or new symptoms develop, then patient should return to the ED immediately. Instructions explained and given directly by me to the patient with acknowledgment and demonstrated understanding. Disclaimer: Inadvertent spelling and grammatical errors are likely due to [employer]/dictation software use and do not reflect on the overall quality of patient care. Also, please note that the electronic time recorded on this note does not necessarily reflect the actual time of the patient encounter. Departure Diagnosis: Primary Impression: Headache Headache type: tension-type Intractability: not intractable Condition: Stable Additional Instructions: Thank you very much for allowing us to participate in your care. Your health and safety is our top priority at [facility]. Call your primary care doctor TOMORROW for an appointment during the next 2-4 days and bring all the information and medications prescribed. Have prescriptions filled and follow precisely the directions on the label. If the symptoms get worse and your provider is unavailable, return to the Emergency Department immediately. BENNETT SANDERSON MD Dec 04, 2018 21:54
[2018-12-04] MEDS ORDERED: ACETAMINOPHEN 325 MG TAB PO ONE (22:30)
[2018-12-04] MEDS ORDERED: IBUPROFEN 200 MG TAB PO ONE (22:30)
[2018-12-04] MEDS ORDERED: IBUP-1561 PO (23:12)
[2018-12-04] MEDS ORDERED: ACET325T33 PO (23:12)
== END 2018-12-05 00:07 | disposition home or self-care (01) ==
LOC: FTE 18:18
DX: R51 Headache (principal); I10 Essential (primary) hypertension; E11.9 Type 2 diabetes mellitus without complications; F17.210 Nicotine dependence, cigarettes, uncomplicated; Z79.84 Long term (current) use of oral hypoglycemic drugs
CPT/HCPCS: 80053; 81003; 85025; 99283; Z7610

== ENCOUNTER 2019-01-04 17:49 | Emergency (ER) | payer BC ==
[~2019-01-04] VITALS: Ht 172.7 cm; Wt 86.4 kg
[~2019-01-04 17:49] MED LIST changes: +ACET325T33 PO; +IBUP-1561 PO
[2019-01-04 18:05] VITALS: Ht 172.7 cm; Wt 86.4 kg
[2019-01-04] MEDS ORDERED: KETOROLAC 30 MG INJ IM STA (21:13)
[2019-01-04] MEDS ORDERED: HYDROCODONE/APAP (5/325) TAB PO ONE (21:30)
[2019-01-04] MEDS ORDERED: ACET500C5 PO (23:16)
[2019-01-04] MEDS ORDERED: NAPR-985 PO (23:16)
[2019-01-04] MEDS ORDERED: TRAM50TA2 PO (23:16)
[2019-01-04 23:29] VITALS: BP 141/90; PULSE 87; RESP 19
--- NOTE | 2019-01-05 01:42 | ERD ---
ER Documentation Chief Complaint Chief Complaint pt bib self with c/o right hand pain , lifting something yesterday HPI 44 year-old [male] coming in today with Chief Complaint: Right extremity pain History of Present Illness: Patient reports lifting a sink yesterday weighing approximately 60 pounds. Reports significant pain after attempting to lift sink. Patient reports feeling pain in right wrist and hand with decreased range of motion, and causing pulling to muscles of right forearm and causing exacerbation of pain. Denies any other associated symptoms; denies neurovascular compromise symptoms. Review of systems: All systems were reviewed and are negative except for what is indicated in the history of present illness. Past Medical History: Hyperlipidemia and diabetes Social History: Positive tobacco use, positive alcohol use socially, negative illicit drug use Medications: [Reviewed as documented Nursing Notes] Allergies: [NKDA] Social Concerns: Denies ROS All systems reviewed and are negative except as per history of present illness. Medications Home Meds Active Scripts Acetaminophen* (Tylophen*) 500 Mg Capsule, 2 CAP PO Q6 PRN for PAIN AND OR ELEVATED TEMP, #30 CAP Prov:ELDON WOOD NP 01/04/19 Tramadol HCl (Tramadol HCl) 50 Mg Tablet, 50 MG PO Q8, #8 TAB Prov:ELDON WOOD NP 01/04/19 Naproxen* (Naprosyn*) 500 Mg Tablet, 500 MG PO BID PRN for PAIN AND/OR INFLAMMATION, #30 TAB Prov:ELDON WOOD NP 01/04/19 Ibuprofen* (Motrin*) 400 Mg Tab, 400 MG PO Q8, #30 TAB Prov:BENNETT SANDERSON MD 12/04/18 Acetaminophen* (Tylenol*) 325 Mg Tablet, 2 TAB PO Q8 PRN for PAIN AND OR ELEVATED TEMP, #20 TAB Prov:BENNETT SANDERSON MD 12/04/18 Ibuprofen* (Motrin*) 600 Mg Tab, 600 MG PO Q6H PRN for PAIN AND OR ELEVATED TEMP, #30 TAB Prov:OG MORIN NP 11/29/17 Tramadol HCl (Tramadol HCl) 50 Mg Tablet, 50 MG PO Q6 PRN for SEVERE PAIN LEVEL 7-10, #20 TAB Prov:OG MORIN NP 11/29/17 Paroxetine Hcl* (Paroxetine*) 40 Mg Tablet, 40 MG PO DAILY, #30 TAB Prov:HOLLY ROMERO MD 09/20/17 Simvastatin* (Simvastatin*) 5 Mg Tablet, 10 MG PO QHS, #30 TAB Prov:HOLLY ROMERO MD 09/20/17 Glipizide* (Glipizide*) 5 Mg Tablet, 5 MG PO BID, #60 TAB Prov:HOLLY ROMERO MD 09/20/17 Lisinopril* (Lisinopril*) 10 Mg Tablet, 10 MG PO DAILY, #30 TAB Prov:HOLLY ROMERO MD 09/20/17 Metformin* (Glucophage*) 1,000 Mg Tablet, 1000 MG PO BID, #60 TAB Prov:HOLLY ROMERO MD 09/20/17 Simvastatin (Simvastatin) 10 Mg Tablet, 10 MG PO QHS, #30 TAB Prov:VIC PAL PA-C 08/16/17 Lisinopril* (Lisinopril*) 10 Mg Tablet, 10 MG PO DAILY, #30 TAB Prov:VIC PAL PA-C 08/16/17 Hydrocodone/Acetaminophen ([place] 5-325 Tablet) 1 Each Tablet, 1 TAB PO Q6H PRN for PAIN, #20 TAB Prov:SHERRY ZEE 06/28/17 Ibuprofen* (Motrin*) 600 Mg Tab, 600 MG PO Q6, #30 TAB Prov:SHERRY ZEE 06/28/17 Carbamide Peroxide* (Debrox*) 6.5% - 15 Ml Drops, 10 DROP LEFT EAR BID, #1 BOTTLE Prov:GIANFRANCO PASCAL PA-C 04/22/17 Neomycin [place]/Bacitrac Zn/Poly (Triple Antibiotic Ointment) 1 Each Oint.pack, 1 EACH TP TID for 7 Days Prov:CANDIDO MAGAÑA 04/15/17 Cetirizine Hcl* (Zyrtec*) 10 Mg Capsule, 10 MG PO DAILY, #30 TAB.CHEW Prov:BECKI VALENTINO MD 01/16/17 Triamcinolone Acetonide (Triamcinolone Acetonide) 0.1% - 15 Gm Cream.gm., 1 APPLIC TOP BID for 7 Days, #1 TUB Prov:BECKI VALENTINO MD 01/16/17 Doxycycline Hyclate* (Doxycycline Hyclate*) 100 Mg Tablet., 100 MG PO BID for 10 Days, #20 TAB Prov:BECKI VALENTINO MD 01/16/17 Guaifenesin* (Robitussin*) 100 Mg/5 Ml Syrup, 200 MG PO Q4H PRN for COUGH for 5 Days, ML Prov:SANDRA KANG NP 07/10/16 Omeprazole* (Prilosec*) 20 Mg Capsule., 20 MG PO BID, #30 CAP 0 Refills Prov:LUCÍA RIDDLE PA-C 01/22/16 Bismuth Subsalicylate* (Pepto-Bismol*) 262 Mg/15 Ml Oral.susp, 30 ML PO Q6H PRN for PAIN, #240 ML 0 Refills Prov:LUCÍA RIDDLE PA-C 01/22/16 Reported Medications Clonazepam* (Klonopin*) 0.5 Mg Tab 03/29/12 [Paxil] No Conflict Check 03/29/12 Allergies Allergies: Coded Allergies: No Known Allergy (Unverified , 08/16/17) PMhx/Soc Medical and Surgical Hx: pt denies Surgical Hx History of Surgery: No Anesthesia Reaction: No Hx Neurological Disorder: No Hx Respiratory Disorders: No Hx Cardiac Disorders: Yes (HTN) Hx Psychiatric Problems: Yes (Anxiety) Hx Miscellaneous Medical Probl: Yes (DM,Dyslipidemia) Hx Alcohol Use: Yes (Social) Hx Substance Use: No Hx Tobacco Use: Yes (Cigarettes) Smoking Status: Former smoker FmHx Family History: diabetes; No coronary disease Physical Exam Vitals Vital Signs Date Temp Pulse Resp B/P (MAP) Pulse Ox O2 O2 Flow FiO2 Time Delivery Rate 01/04/19 98.3 87 19 141/90 96 Room Air 23:29 (107) 01/04/19 98.0 82 16 135/73 98 18:05 (93) Physical Exam Const: No acute distress Head: Atraumatic Eyes: Normal Conjunctiva ENT: Normal External Ears, Nose and Mouth. Neck: Full range of motion. No meningismus. Resp: Clear to auscultation bilaterally Cardio: Regular rate and rhythm, no murmurs Abd: Soft, non tender, non distended. Normal bowel sounds Skin: No petechiae or rashes Back: No midline or flank tenderness Ext: No cyanosis, or edema; mild swelling noted to right forearm, . Decrease d range of motion to right wrist. Tender to palpation to right forearm, right wrist, right hand. no ecchymosis, no erythema, no neurovascular compromise noted to right upper extremity. Neur: Awake and alert Psych: Normal Mood and Affect Results 24 hrs Current Medications Medications Dose Sig/Rob Start Time Status Last (Trade) Ordered Route PRN Stop Time Admin Dose Reason Admin Ketorolac 30 mg ONCE STAT 01/04/19 DC 01/04/19 Tromethamine IM 21:13 01/04/19 21:22 (Toradol) 21:17 1 tab ONCE ONCE 01/04/19 DC Acetaminophen PO 21:30 01/04/19 / 21:31 Hydrocodone Bitart ([place] (5/325)) Procedures/MDM ED course includes a thorough examination and history. ED course includes medications, Toradol for inflammation and [place] for pain. ED course includes imaging; x-ray of right forearm, right wrist, right hand. Low suspicion for life-threatening medical emergency, orthopedic emergency, fractures. Otherwise healthy patient presenting with constellation of symptoms likely representing uncomplicated sprains and strains of right forearm as characterized by history, physical exam findings [radiologic]. Negative right forearm, negative right wrist, negative right hand x-rays. Patient reassessment at 2307 : ED course includes Roc wrap application to affected extremity and right sling and right wrist brace. Pain no longer present after medication administration. She is neurovascularly intact after splint application. No respiratory distress, otherwise relatively well appearing and nontoxic. Patient educated on diagnoses, prescriptions [naproxen, tramadol, acetaminophen], follow-up care, return precautions. Strict return precautions given for worsening condition; questions answered discharge. Rice encouraged. Disposition for discharge with followup in 2-3 days with PCP/clinic. Departure Diagnosis: Primary Impression: Strain of right forearm Additional Impressions: Sprain and strain of wrist Sprain of forearm, right Condition: Stable Patient Instructions: Wrist Sprain Referrals: COMMUNITY CLINICS YOU HAVE RECEIVED A MEDICAL SCREENING EXAM AND THE RESULTS INDICATE THAT YOU DO NOT HAVE A CONDITION THAT REQUIRES URGENT TREATMENT IN THE EMERGENCY DEPARTMENT. FURTHER EVALUATION AND TREATMENT OF YOUR CONDITION CAN WAIT UNTIL YOU ARE SEEN IN YOUR DOCTORS OFFICE WITHIN THE NEXT 1-2 DAYS. IT IS YOUR RESPONSIBILITY TO MAKE AN APPOINTMENT FOR FOLOW-UP CARE. IF YOU HAVE A PRIMARY DOCTOR --you should call your primary doctor and schedule an appointment IF YOU DO NOT HAVE A PRIMARY DOCTOR YOU CAN CALL OUR PHYSICIAN REFERRAL HOTLINE AT IF YOU CAN NOT AFFORD TO SEE A PHYSICIAN YOU CAN CHOSE FROM THE FOLLOWING [facility] [address] [facility] [address] [facility] [address] [facility] [address] [facility] [address] [facility]. [facility] [address] [facility] [facility] YOU HAVE RECEIVED A MEDICAL SCREENING EXAM AND THE RESULTS INDICATE THAT YOU DO NOT HAVE A CONDITION THAT REQUIRES URGENT TREATMENT IN THE EMERGENCY DEPARTMENT. FURTHER EVALUATION AND TREATMENT OF YOUR CONDITION CAN WAIT UNTIL YOU ARE SEEN IN YOUR DOCTORS OFFICE WITHIN THE NEXT 1-2 DAYS. IT IS YOUR RESPONSIBILITY TO MAKE AN APPOINTMENT FOR FOLOW-UP CARE. IF YOU HAVE A PRIMARY DOCTOR --you should call your primary doctor and schedule and appointment IF YOU DO NOT HAVE A PRIMARY DOCTOR YOU CAN CALL OUR PHYSICIAN REFERRAL HOTLINE AT . IF YOU CAN NOT AFFORD TO SEE A PHYSICIAN YOU CAN CHOSE FROM THE FOLLOWING [facility] INSTITUTIONS: [facility] [address] [place] [address] [facility] [address] [place] [address] [facility] [address] [place] [address] [facility] 7 a.m.- 11 p.m. Every Day of the Week NO APPOINTMENT OR AUTHORIZATION NEEDED SO [facility] Hours: Mon-Fri 9:00 AM - 5:00 PM Additional Instructions: Call your primary care doctor TOMORROW for an appointment during the next 2-3 days.See the doctor sooner or return here if your condition worsens before your appointment time. If pain is still present within 2-3 days, follow-up with primary care doctor for further evaluation, may need additional testing. Return to ER with decreased sensation, numbness tingling, pain unrelieved with pain medication, decreased circulation. ELDON WOOD NP Jan 05, 2019 01:42
== END 2019-01-04 23:25 | disposition home or self-care (01) ==
LOC: FTE 17:49
DX: S56.911A Strain of unspecified muscles, fascia and tendons at forearm level, right arm, initial encounter (principal); S66.911A Strain of unspecified muscle, fascia and tendon at wrist and hand level, right hand, initial encounter; I10 Essential (primary) hypertension; E11.9 Type 2 diabetes mellitus without complications; X50.0XXA Overexertion from strenuous movement or load, initial encounter; Y92.9 Unspecified place or not applicable; Z79.84 Long term (current) use of oral hypoglycemic drugs; Z87.891 Personal history of nicotine dependence
CPT/HCPCS: 73090; 73110; 73130; J1885; 96372